=== PATIENT | female | born 1975 | race Hispanic/Latino ===

== ENCOUNTER 2021-01-11 21:07 | Emergency (ER) | payer OTHER ==
[~2021-01-11] VITALS: Ht 167.6 cm; Wt 54.4 kg
[2021-01-11 21:10] VITALS: BP 126/71
== END 2021-01-12 00:09 | disposition left against medical advice (07) ==
LOC: EDH 21:10
DX: R10.9 Unspecified abdominal pain (principal); Z53.21 Procedure and treatment not carried out due to patient leaving prior to being seen by health care provider